=== PATIENT | male | born 1980 | race Caucasian/White ===

== ENCOUNTER 2016-12-10 17:46 | Emergency (ER) | payer OTHER, BC ==
[~2016-12-10] VITALS: Ht 193 cm; Wt 102.1 kg
[~2016-12-10 17:46] MED LIST: ATIVAN0.5 MG PO; LEVOFLOXACIN500 MG PO; MULTIPLE VITAMI1 CAP PO; ZITHROMAX Z PA250 MG PO
[2016-12-10] MEDS ORDERED: DELTASONE20 M1 PO (19:20)
== END 2016-12-10 22:56 | disposition home or self-care (01) ==
LOC: ED 17:46
DX: T59.891A Toxic effect of other specified gases, fumes and vapors, accidental (unintentional), initial encounter (principal); J68.0 Bronchitis and pneumonitis due to chemicals, gases, fumes and vapors; F17.200 Nicotine dependence, unspecified, uncomplicated; Z79.899 Other long term (current) drug therapy; Z88.1 Allergy status to other antibiotic agents; Y92.9 Unspecified place or not applicable

== ENCOUNTER 2017-03-13 19:35 | Emergency (ER) | payer BC ==
[~2017-03-13] VITALS: Ht 190.5 cm; Wt 102.1 kg
[~2017-03-13 19:35] MED LIST changes: +DELTASONE20 M1 PO
[2017-03-13] MEDS ORDERED: MEDROL DOSEPAK4 MG PO (20:49)
== END 2017-03-13 20:55 | disposition home or self-care (01) ==
LOC: ED 19:35
DX: T78.40XA Allergy, unspecified, initial encounter (principal); F17.200 Nicotine dependence, unspecified, uncomplicated; Z88.1 Allergy status to other antibiotic agents; X58.XXXA Exposure to other specified factors, initial encounter

== ENCOUNTER 2020-10-08 07:28 | Emergency (ER) | payer BC ==
[~2020-10-08 07:28] MED LIST changes: +MEDROL DOSEPAK4 MG PO
[2020-10-08 09:13] LABS: BUN 19 mg/dl (7-24); CHLORIDE 111 mmol/L (98-107); CREATININE 1.01 mg/dL (0.70-1.30); POTASSIUM 4.4 mmol/L (3.5-5.1); SODIUM 141 mmol/L (136-145)
[2020-10-08 09:14] LABS: TROPONIN I < 0.015 ng/ml (<0.045)
[2020-10-08] MEDS ORDERED: PEPCID20 MG PO (09:56)
== END 2020-10-08 10:17 | disposition home or self-care (01) ==
LOC: ED 07:28
PROVIDERS: Emergency Medicine
DX: K21.9 Gastro-esophageal reflux disease without esophagitis (principal); Z77.098 Contact with and (suspected) exposure to other hazardous, chiefly nonmedicinal, chemicals; Z88.1 Allergy status to other antibiotic agents; Z79.899 Other long term (current) drug therapy; Z87.891 Personal history of nicotine dependence

== ENCOUNTER → 2024-03-21 | Outpatient (CLI) | payer BC ==
[~2024-03-21] MED LIST changes: +PEPCID20 MG PO
[2024-03-21 09:37] LABS: HEMATOCRIT 45.7 % (42.0-52.0); MEAN CELL VOLUME 88.1 fl (80.0-94.0); MEAN CORPUSCULAR HGB 30.6 pg (27.0-31.0); MEAN CORPUSCULAR HGB CONC 34.8 g/dl (33.0-37.0); MEAN PLATELET VOLUME 9.9 fl (9.6-12.3); RED BLOOD COUNT 5.19 10*6/uL (4.50-5.90); RED CELL DISTRI WIDTH 12.1 % (0-14.5); WHITE BLOOD COUNT 5.3 10*3/uL (4.8-10.8)
[2024-03-21 10:01] LABS: ALKALINE PHOSPHATASE 71 U/L (46-116); BUN 19 mg/dl (9-23); CHLORIDE 109 mmol/L (98-107); CHOLESTEROL 267 mg/dL (<200); LDL CHOLESTEROL 169 mg/dL (9-159); POTASSIUM 4.5 mmol/L (3.4-5.1); SGPT/ALT 51 U/L (5-49); TOTAL PROTEIN 7.6 gm/dL (6.0-8.0); TRIGLYCERIDES 206 mg/dl (<150)
== END | disposition home or self-care (01) ==
LOC: LAB 09:23
PROVIDERS: ATTEND Family Medicine
DX: S70.369A Insect bite (nonvenomous), unspecified thigh, initial encounter (principal); Z13.220 Encounter for screening for lipoid disorders; M54.2 Cervicalgia; R53.83 Other fatigue; M21.942 Unspecified acquired deformity of hand, left hand; Z00.00 Encounter for general adult medical examination without abnormal findings; Z79.899 Other long term (current) drug therapy; X58.XXXA Exposure to other specified factors, initial encounter; Y93.89 Activity, other specified; Y92.89 Other specified places as the place of occurrence of the external cause; Y99.8 Other external cause status